=== PATIENT | male | born 1990 | race Two or more races ===

== ENCOUNTER 2019-11-19 06:14 | Day surgery (SDC) | payer OTHER ==
--- NOTE | 2019-11-18 18:04 | Brief Operative Note ---
Immediate Post Operative Note Operative Note Chief Complaint: Nasal airway obstruction Pre-op Diagnosis: Nasal valve collapse Septal deviation Hypertrophied bilateral inferior turbinates Procedure: 1. Nasal valve reconstruction with left post auricular graft 2. Septoplasty 3. SMR inf right turbinate 4. SMR inf left turbinate Post-op Diagnosis: same as pre-op Surgeon: Laci Marvin MD Wallet Assembler: none Additional Surgeons: none Anesthesiologist: Erin Anesthesia: general Specimen: none Complications: none Condition: stable Fluids: [id number] Estimated Blood Loss: volume - 50 cc Drains: none Packing: SInoNasal gel Implant(s) used?: No Laci Marvin MD Nov 18, 2019 18:04
--- NOTE | 2019-11-18 18:05 | Pre-Procedure Note/Attestation ---
Pre-Procedure Note/Attestation Complete Prior to Procedure Planned Procedure: bilateral Procedure Narrative: 1. Nasal valve reconstruction with left post auricular graft 2. Septoplasty 3. SMR inf right turbinate 4. SMR inf left turbinate Indications for Procedure Pre-Operative Diagnosis: Nasal valve collapse Septal deviation Hypertrophied bilateral inferior turbinates Attestation I attest that I discussed the nature of the procedure; its benefits; risks and complications; and alternatives (and the risks and benefits of such alternatives ), prior to the procedure, with the patient (or the patient's legal business office representative). I attest that, if there was a reasonable possibility of needing a blood transfusion, the patient (or the patient's legal business office representative) was given the [place] [employer] [facility] standardized written summary, pursuant to the [place] Blood Safety Act ([place] Health and Safety Code # 1645, as amended). I attest that I re-evaluated the patient just prior to the surgery and that there has been no change in the patient's H&P. Laci Marvin MD Nov 18, 2019 18:05
--- NOTE | 2019-11-18 21:04 | History & Physical ---
History of Present Illness General Date patient seen: Nov 12, 2019 Time patient seen: 11:00 Reason for Hospitalization: outpt nasal surgery Present Illness Allergies: Coded Allergies: No Known Allergies (Unverified , 11/18/19) COVID-19 Screening Contact w/high risk pt: No Recent Travel to affected area: No Experienced COVID-19 symptoms?: No Medication History No Active Prescriptions or Reported Meds Patient History History Provided By: Patient Healthcare decision maker Resuscitation status Full code Advanced Directive on File Review of Systems Review of Symptoms General ROS: no weight loss or fever Psychological ROS: no depression or mood changes, no memory loss Ophthalmic ROS: no visual changes or eye irritation ENT ROS: no hearing loss, dizziness. +Nasal airway obstruction Allergy and Immunology ROS: no allergic symptoms or urticaria Hematological and Lymphatic ROS: no swollen glands, unusual bleeding or bruising Endocrine ROS: no polyuria, polydipsia, weight changes, temperature intolerance Respiratory ROS: no cough, shortness of breath, or wheezing Cardiovascular ROS: no chest pain or dyspnea on exertion Gastrointestinal ROS: denies abdominal pain, bright red blood in stool. Musculoskeletal ROS: no myalgias or arthralgias Neurological ROS: no TIA or stroke symptoms Dermatological ROS: no new or changing skin lesions, rashes or pruritis Physical Exam Physical Exam General appearance: alert, cooperative, no distress, appears stated age Head: Normocephalic, without obvious abnormality, atraumatic Eyes: conjunctivae/corneas clear. PERRL, EOM's intact. Fundi benign Throat: Lips, mucosa, and tongue normal. Teeth and gums normal NOSE: SEPTAL DEVIATION, HYPERTROPHIED INFERIOR TURBINATES, INCOMPETENT NASAL VALVES. Neck: supple, symmetrical, trachea midline, no adenopathy, thyroid: not enlarged, symmetric, no tenderness/mass/nodules, no carotid bruit and no JVD Lungs: clear to auscultation bilaterally Heart: regular rate and rhythm, S1, S2 normal, no murmur, click, rub or gallop Abdomen: soft, non-tender. Bowel sounds normal. No masses, no organomegaly Extremities: extremities normal, atraumatic, no cyanosis or edema Pulses: 2+ and symmetric Skin: Skin color, texture, turgor normal. No rashes or lesions Neurologic: Grossly normal Not indicated since healthy 29 yo under 45 years old Height (Feet): 6 Height (Inches): 1 Weight (Pounds): 150 Medications Current Medications Medications (Trade) Dose Ordered Sig/Lynda Route PRN Reason Start Time Stop Time Status Last Admin Dose Admin Cefazolin Sodium 1 gm/Dextrose 55 ml @ 110 mls/hr ONCE ONCE IV 11/19/19 07:15 11/19/19 07:44 Dexamethasone Sodium Phosphate (Decadron 4mg/ml vial) 8 mg ONCE IVP 11/19/19 07:30 11/19/19 08:30 Assessment/Plan Status: stable Assessment/Plan: Candidate for surgery: 1/ Nasal valve reconstruction with left post auricular graft Septoplasty-revison from surgery many years ago elsewhere SMR bilateral inderior turbinates. MIPS Hospital declaration Disposition: Once the patient is stable to leave the hospital, I anticipate the patient will likely be discharged to the following environment:Home Estimated discharge date: 06/19/2019 I spent 70 minutes on this patient's case, and 40 minutes was dedicated to counseling and/or care coordination. MIPS ([employer]it-based Incentive Payment System) Applicable CPT: 06155, 59469 CHECK ALL THAT ARE MET: Measure #130 The provider has documented, updated, or reviewed the patients current medication list and has documented it in the patients note. Measure #374 (All): Send report to referring provider. Measure #407(Sepsis due to MSSA bacteremia): Age 18+ Patient treated with a beta-lactam antibiotic (Nafcillin, Oxacillin or Cefazolin) as definitive therapy. MEDICAL COMPLEXITY High complexity medical decision making (need 2/3 categories) Problem - need 4 points Acute/new problem with new plan for workup (4 points, 1 max) Acute/new problem without additional workup (3 points, 1 max) Unstable chronic problem actively being managed (2 point each, 2 max) Stable chronic problem actively being managed (1 point each, 2 max) Self-limited/transient process (constipation, muscle ache, etc) (1 point each , 2 max) Data - need 4 points Reviewed labs/imaging studies (1 points, 2 max) Independent review of imaging (EKG, xrays, etc) (2 points, 2 max) Discussed case with consult/other MD/RN (2 points, 2 max) High Risk - qualify if have one of the following: Severe exacerbation of acute problem, acute mental status change, IV narcotics , monitoring drug levels (vancomycin, INR, tacrolimus etc) Laci Marvin MD Nov 18, 2019 21:04
--- NOTE | 2019-11-18 21:15 | Discharge Instructions ---
Discharge Instructions Discharge Instructions Follow up with: Dr. Marvin next week Diet: regular Resume Normal Activity?: No Activity: light activity Pneumonia Vaccine: pt refused vaccine Influenza Vaccine (Dec to May): pt refused vaccine Follow Up Orders pt has printed psot op instructions Return to Work/School on: Dec 02, 2019 Special Instructions ice to face x 48 hours For Surgical Patients Dressing Care: may change May shower: No For Congestive Heart Failure Reminder Report to your physician any weight gain of 5 pounds or more in one week. Laci Marvin MD Nov 18, 2019 21:15
[~2019-11-19] VITALS: Ht 185.4 cm; Wt 70.3 kg
[2019-11-19] VITALS (11 sets, daily range): BP systolic 105–128; BP diastolic 52–88
[2019-11-19] MEDS ORDERED: LR 1000ml 1,000 ML IVLG SCH (07:02)
--- NOTE | 2019-11-19 07:04 | Immediate Post-Op Evaluation ---
Immediate Post-Op Evalulation Immediate Post-Op Evalulation Procedure: Septoplasty, SMR Turbinates Date of Evaluation: Nov 19, 2019 Time of Evaluation: 10:25 IV Fluids: 900 LR Blood Products: 0 Estimated Blood Loss: 50 Urinary Output: 0 Blood Pressure Systolic: 110 Blood Pressure Diastolic: 52 Pulse Rate: 63 Respiratory Rate: 16 O2 Sat by Pulse Oximetry: 100 Temperature (Fahrenheit): 97.8 Pain Score (1-10): 2 Nausea: No Vomiting: No Complications 0 Patient Status: awake, reacts, patent, none Hydration Status: adequate Dru Gram Ancef IV Given Within 1 Hr of Incision: Yes Time Given: 09:11 Williams Khan MD Nov 19, 2019 07:04
[2019-11-19] MEDS ORDERED: Acetaminophen (Non formulary) 100 ML IV ONE (07:15)
[2019-11-19] MEDS ORDERED: fentaNYL 100 mcg/2 mL IV PRN (07:15)
[2019-11-19] MEDS ORDERED: Midazolam 2mg/2ml Inj IVP PRN (07:15)
[2019-11-19] MEDS ORDERED: Metoclopramide 10mg/2ml Inj IVP PRN ×2 (07:15→10:15)
[2019-11-19] MEDS ORDERED: oxyCODONE HCL/Acetaminophen 5/325mg ORAL PRN (07:15)
[2019-11-19] MEDS ORDERED: Labetalol 5mg/ml 20ml vial IV PRN (07:15)
[2019-11-19] MEDS ORDERED: LORazepam Inj 2mg/ml 1ml IV PRN (07:15)
[2019-11-19] MEDS ORDERED: Meperidine 25mg/0.5ml Inj (FOR RIGORS ONLY) IV PRN (07:15)
[2019-11-19] MEDS ORDERED: Hydromorphone 0.5mg/0.5ml inj IVP PRN (07:15)
[2019-11-19] MEDS ORDERED: Ketorolac 30mg Inj IV PRN ×2 (07:15)
[2019-11-19] MEDS ORDERED: Atropine Sulfate 0.4mg/ml inj IVP PRN (07:15)
[2019-11-19] MEDS ORDERED: HYDROcodone/Acetamin 5/325 tab ORAL PRN ×2 (07:15→10:15)
[2019-11-19] MEDS ORDERED: HYDROcodone/Acetamin 7.5/325 tab ORAL PRN (07:15)
[2019-11-19] MEDS ORDERED: ceFAZolin sod 1 GM in D5W 55 ML IV ONE (07:15)
[2019-11-19] MEDS ORDERED: DiphenhydrAMINE 50mg/ml Inj IVP PRN (07:15)
[2019-11-19] MEDS ORDERED: Cocaine HCl 4% 4ml vial TOPIC ONE (07:26)
[2019-11-19] MEDS ORDERED: Bacitracin Oint 15gm Tube TOPIC ONE (07:26)
[2019-11-19] MEDS ORDERED: Lidocaine 1% 10mg/ml/Epi 0.005mg/ml 30ml vial INJ ONE (07:26)
[2019-11-19] MEDS ORDERED: Bupivacaine w/Epi 0.5% 30ml Vial INJ ONE (07:27)
[2019-11-19] MEDS ORDERED: Lidocaine 1% Plain 30 ml INJ ONE ×2 (07:27→07:35)
[2019-11-19] MEDS ORDERED: NS Irrig 1000ml IRRIG ONE ×3 (07:28→09:18)
[2019-11-19] MEDS ORDERED: Lidocaine 1% MPF 10mg/ml 5ml ONE ×2 (07:36→08:52)
[2019-11-19] MEDS ORDERED: Sodium Chloride 10ml vial INJ ONE ×2 (07:36→08:52)
[2019-11-19] MEDS ORDERED: LR 1000ml ONE (09:00)
[2019-11-19] MEDS ORDERED: propofoL 1,000mg/100ml IV ONE (09:00)
[2019-11-19] MEDS ORDERED: Sterile Water Irrig 1000ml IRRIG ONE (09:00)
--- NOTE | 2019-11-19 09:00 | Anethesia Preoperative Eval ---
Anesthesia Pre-op PMH/ROS General Date of Evaluation: Nov 19, 2019 Time of Evaluation: 08:58 Anesthesiologist: Erin ASA Score: ASA 2 Mallampati Score Class I : Soft palate, uvula, fauces, pillars visible Class II: Soft palate, uvula, fauces visible Class III: Soft palate, base of uvula visible Class IV: Only hard plate visible Mallampati Classification: Class II Surgeon: Shavonne Diagnosis: Nasal Deformity Surgical Procedure: Septoplasty, SMR Turbinates Anesthesia History: none Family History: no anesthesia problems Allergies: Coded Allergies: No Known Allergies (Unverified , 11/18/19) Medications: see eMAR Patient NPO?: Yes Past Medical History Gastrointestinal/Genitourinary: Reports: GERD Neurologic/Psychiatric: Reports: depression/anxiety PSxH Narrative: Septoplasty Anesthesia Pre-op Phys. Exam Physician Exam Last Vital Signs Date Time Temp Pulse Resp B/P (MAP) Pulse Ox O2 Delivery O2 Flow Rate FiO2 11/19/19 08:06 Room Air 11/19/19 08:04 97.5 72 18 122/72 99 Constitutional: NAD Neurologic: CN 2-12 intact Cardiovascular: RRR Respiratory: CTA Gastrointestinal: S/NT/ND Airway Exam Mallampati Score: Class II MO: full ROM: full Teeth: intact Anesthesia Pre-op A/P Risk Assessment & Plan Assessment: ASA 2 Plan: GA, SED Status Change Before Surgery: No Pre-Antibiotics Dru Gram Ancef IV Given Within 1 Hr of Incision: Yes Time Given: 09:11 Williams Khan MD Nov 19, 2019 09:00
[2019-11-19] MEDS ORDERED: Midazolam 2mg/2ml Inj ONE (09:12)
--- NOTE | 2019-11-19 09:20 | 48 Hour Post Anesthesia Eval ---
Post Anesthesia Evaluation Procedure: Septoplasty, SMR Turbinates Date of Evaluation: Nov 19, 2019 Time of Evaluation: 12:46 Blood Pressure Systolic: 114 0: 72 Pulse Rate: 67 Respiratory Rate: 18 Temperature (Fahrenheit): 98 O2 Sat by Pulse Oximetry: 100 Airway: patent Nausea: No Vomiting: No Pain Intensity: 2 Hydration Status: adequate Cardiopulmonary Status: Stable Mental Status/LOC: patient returned to baseline Follow-up Care/Observations: 0 Post-Anesthesia Complications: 0 Follow-up care needed: ready to discharge Williams Khan MD Nov 19, 2019 09:20
[2019-11-19] MEDS ORDERED: HYDROmorphone 1mg/ml Carpuject SUBQ PRN (10:15)
--- NOTE | 2019-11-19 12:15 | Operative Note - Dictated ---
DATE OF OPERATION: 11/19/2019 SURGEON: Laci Marvin MD. RESEARCH ELECTRICIAN: None. ANESTHESIOLOGIST: Williams Khan MD. ANESTHESIA: LMA general anesthesia. 10 mL of 1% lidocaine with 1:100,000 epinephrine with Marcaine 0.5% with 1:200,000 epinephrine in 50:50 mixture, a total of 10 mL. Additionally 4 mL of 4% topical cocaine were placed on four nasal pledgets, two on either nostril, which were accounted for at the end of the case. PREOPERATIVE DIAGNOSES: 1. Nasal valve collapse. 2. Septal deviation. 3. Hypertrophied right and left inferior turbinates. FINDINGS: 1. Nasal valve incompetency. 2. Septal deviation, mainly to the right. 3. Hypertrophied right and left inferior turbinates. PROCEDURE: 1. Nasal valve reconstruction with left postauricular cartilaginous graft. 2. Septoplasty. 3. Submucous resection of right inferior turbinate. 4. Submucous resection of left inferior turbinate. TECHNIQUE: The patient was prepped and draped in usual manner. A time-out was performed and all agreed as to the procedures and equipment indicated for the procedure. I then injected the aforementioned lidocaine, Marcaine, and epinephrine mixture and placed the two nasal pledgets in either nostril with cocaine on it. Initially, I addressed the left postauricular area for the cartilaginous graft. This area then prepped and draped and injected previously. I made an 1-inch incision and wiped away the periosteum. I then was able with a #15 blade to cut out long oval which was dissected out with a small Metzenbaum scissors. This was put in saline to be used later. I then closed this incision with a running horizontal mattress 5-0 Prolene suture. Initially, a small incision made at right inferior turbinate with 15 blade. I then used radiofrequency wand coated with saline gel setting of 6, 10 seconds x2 passes. I then outfractured with a Boies elevator. I addressed the left inferior turbinate in similar manner. Incision made in the anterior-inferior aspect. Radiofrequency wand coated with saline gel setting of 6, two passes 10 seconds each. I then outfractured with a Boies elevator. I then made an incision with a #15 blade in the right septum in a Junior fashion. I then elevated with a dental elevator on either side, freed up the quadrangular cartilage. I used a small angled scissors to remove the upper part and then used straight Marycarmen to remove these. I then sewed the [place] incision closed with a 4-0 plain suture. I made between cartilage incisions with a 15 blade and developed a pocket with a small Metzenbaum scissors. I then was able to place two cartilaginous grafts, one in either pocket and sew these into place with three 5-0 fast-absorbing sutures. Area was clean and suctioned dry. I was able to put the butter knife in 360 degrees on both sides indicating good level airway. Sinonasal gel was placed in either nostril total of one syringe between the two. Antibiotic ointment and a Band-Aid behind the ear. Mustache dressing under the nose. ESTIMATED BLOOD LOSS: 50 mL. COUNTS: None. DRAINS: None. The patient is awake and alert, and stable in the operating room post extubation and in the recovery room. Laci Marvin M.D. DR: JAM JOB#: [id number] CC:
== END 2019-11-19 12:10 | disposition home or self-care (01) ==
LOC: SUR 06:14
DX: J34.2 Deviated nasal septum (principal); M95.0 Acquired deformity of nose; J34.3 Hypertrophy of nasal turbinates; K21.9 Gastro-esophageal reflux disease without esophagitis; F41.9 Anxiety disorder, unspecified; F32.9 Major depressive disorder, single episode, unspecified
CPT/HCPCS: 30140; 30465; 30520; 94003; C9046; J0131; J0690; J1100; J2250; J2405; J2704; J3010; J7120; U0002; 94150